=== PATIENT | female | born 1995 | race Native Hawaiian/Other Pacific Islander ===

== ENCOUNTER 2018-06-22 07:33 | Emergency (ER) | payer OTHER | END 2018-06-22 08:56 | disposition home or self-care (01) | LOC: C.ER 07:33 ==

== ENCOUNTER 2018-07-24 18:31 | Emergency (ER) | payer OTHER ==
[2018-07-24 18:56] VITALS: O2SAT 100
--- NOTE | 2018-07-24 20:47 | C.PDOC ---
History Of Present Illness Patient presents with right lower abdominal pain. She states she feels bloated, currently has her period. Denies fever, chills, nausea, or vomiting. Time Seen by Provider: 07/24/18 20:46 Chief Complaint (Nursing): Abdominal Pain History Per: Patient History/Exam Limitations: no limitations Onset/Duration Of Symptoms: Hrs Current Symptoms Are (Timing): Still Present Severity: Moderate Pain Scale Rating Of: 4 Location Of Pain/Discomfort: RLQ Quality Of Discomfort: Unable To Describe Associated Symptoms: denies: Fever, Chills, Nausea, Vomiting Exacerbating Factors: None Alleviating Factors: None Recent travel outside of the [place]: No Abnormal Vaginal Bleeding: No Past Medical History Reviewed: Historical Data, Nursing Documentation, Vital Signs Vital Signs: Last Vital Signs Temp 98.1 F 07/24/18 18:52 Pulse 81 07/24/18 18:52 Resp 18 07/24/18 18:52 BP 109/74 07/24/18 18:52 Pulse Ox 100 07/24/18 18:52 Family History: States: No Known Family Hx - Social History Hx Alcohol Use: Yes Hx Substance Use: No - Immunization History Hx Tetanus Toxoid Vaccination: Yes Hx Influenza Vaccination: No Hx Pneumococcal Vaccination: No Review Of Systems Constitutional: Negative for: Fever, Chills Cardiovascular: Negative for: Chest Pain, Palpitations Respiratory: Negative for: Cough, Shortness of Breath Gastrointestinal: Positive for: Abdominal Pain. Negative for: Nausea, Vomiting Neurological: Negative for: Weakness, Numbness Physical Exam - Physical Exam Appears: Non-toxic Skin: Warm, Dry Head: Normacephalic Oral Mucosa: Moist Chest: Symmetrical, No Tenderness Cardiovascular: Rhythm Regular Respiratory: No Rales, No Rhonchi, No Wheezing Gastrointestinal/Abdominal: Soft, Tenderness (Mildly diffuse), No Guarding, No Rebound Back: No CVA Tenderness Neurological/Psych: Oriented x3 ED Course And Treatment - Laboratory Results Result Diagrams: 07/24/18 21:34 07/24/18 21:34 O2 Sat by Pulse Oximetry: 100 (Room air) Pulse Ox Interpretation: Normal Progress Note: Blood work and urinalysis ordered. Reevaluation Time: 00:40 Reassessment Condition: Improved Medical Decision Making Medical Decision Making: Upon provider reevaluation patient is feeling better, is medically stable, and requires no further treatment in the ED at this time. Patient will be discharged home with Rx for reglan . Counseling was provided and all questions were answered regarding diagnosis and need for follow up with the referred clinic. There is agreement to discharge plan. Return if symptoms persist or worsen. Disposition Counseled Patient/Family Regarding: Studies Performed, Diagnosis, Need For Followup, Rx Given - Disposition Referrals: [facility] [Outside] [facility] [Outside] Disposition: HOME/ ROUTINE Disposition Time: 20:47 Condition: FAIR Additional Instructions: Please return if symptoms recur. Do not eat tonight and have very light meals tomorrow Prescriptions: Metoclopramide [Reglan] 1 tab PO TID PRN #25 tab PRN Reason: Nausea/Vomiting Instructions: Acute Abdomen (Belly Pain), Adult (DC), Small Bowel Obstruction (DC) Forms: [facility] (Czech) - Clinical Impression Clinical Impression: Abdominal pain, Partial small bowel obstruction - Scribe Statement The provider has reviewed the documentation as recorded by the Scribe Deshaun Ivey All medical record entries made by the Scribe were at my direction and personally dictated by me. I have reviewed the chart and agree that the record accurately reflects my personal performance of the history, physical exam, medical decision making, and the department course for this patient. I have also personally directed, reviewed, and agree with the discharge instructions and disposition.
[2018-07-24 21:39] LABS: BASO % 0.4 % (0.0-2.0); EOS # 0.2 K/uL (0.0-0.7); EOS % 2.6 % (0.0-4.0); HEMOGLOBIN 13.3 g/dL (11.0-16.0); LYMPH # 2.1 K/uL (1.0-4.3); LYMPH % 31.2 % (20.0-40.0); MEAN CELL VOLUME 87.6 fL (81.0-99.0); MEAN CORPUSCULAR HEMOGLOBIN 28.9 pg (27.0-31.0); MEAN PLATELET VOLUME 7.5 fL (7.2-11.7); MONO # 0.5 K/uL (0.0-0.8); MONO % 7.1 % (0.0-10.0); NEUT % 58.7 % (50.0-75.0); NRBC % 0.1 % (0.0-2.0); RBC 4.6 Mil/uL (3.80-5.20); RED CELL DISTRIBUTION WIDTH 14.4 % (11.5-14.5); WHITE BLOOD COUNT 6.8 K/uL (4.8-10.8)
[2018-07-24 21:44] LABS: SQUAMOUS EPITHIAL < 1 /hpf (0-5); URINE BACTERIA FEW (<OCC); URINE BILIRUBIN NEGATIVE (NEGATIVE); URINE BLOOD 3+ (NEGATIVE); URINE COLOR Yellow (YELLOW); URINE GLUCOSE (UA) NORMAL (Normal); URINE LEUKOCYTE ESTERASE NEG Leu/uL (Negative); URINE PROTEIN NEGATIVE (NEGATIVE); URINE UROBILINOGEN NORMAL mg/dL (0.2-1.0)
[2018-07-24 21:45] LABS: URINE CLARITY Hazy (Clear)
[2018-07-24 21:50] LABS: PROTHROMBIN TIME 11.1 SECONDS (9.7-12.2)
[2018-07-24 21:56] LABS: ALB/GLOB RATIO 1.3 (1.0-2.1); ALBUMIN 4.5 g/dL (3.5-5.0); BLOOD UREA NITROGEN 11 mg/dL (7-17); CALCIUM 9.3 mg/dl (8.6-10.4); GFR NON-AFRICAN AMERICAN > 60; LIPASE 227 U/L (23-300)
[2018-07-24 21:57] LABS: ALT/SGPT 14 U/L (9-52); AST/SGOT 42 U/L (14-36)
[2018-07-24 22:25] VITALS: RESP 16
[2018-07-24] MEDS ORDERED: Iodixanol 320 MG/ML 100 ML BOTTLE IV ONE (22:55)
[2018-07-25 00:49] VITALS: BP 101/67; PULSE 71; TEMP 98.5
--- NOTE | 2018-07-25 10:42 | CT ---
Date of service: 07/24/2018 PROCEDURE: CT Abdomen and Pelvis with contrast HISTORY: rlq abd pain COMPARISON: None available. TECHNIQUE: Contrast dose: 100 mL Visipaque 320 Radiation dose: Total exam DLP = 343.46 mGy-cm. This CT exam was performed using one or more of the following dose reduction techniques: Automated exposure control, adjustment of the mA and/or kV according to patient size, and/or use of iterative reconstruction technique. FINDINGS: LOWER THORAX: No visible consolidation, pleural effusion, or pneumothorax. LIVER: Unremarkable. GALLBLADDER AND BILE DUCTS: Decompressed gallbladder evaluation PANCREAS: Unremarkable. SPLEEN: Unremarkable. ADRENALS: Unremarkable. KIDNEYS AND URETERS: The kidneys enhance symmetrically. No hydronephrosis or obstructing calculus identified. VASCULATURE: No aortic aneurysm. No atherosclerotic calcification or mural plaque present. BOWEL: Stomach is nondistended. Lack of oral contrast limits evaluation for bowel pathology. Dilated small bowel loops with fecalization; suspected transition in the right lower quadrant. Mild inflammatory changes evident involving the right colon. APPENDIX: The appendix is not identified. PERITONEUM: Trace pelvic fluid. No definite free air. LYMPH NODES: No bulky adenopathy identified. BLADDER: Unremarkable. REPRODUCTIVE: Unremarkable. BONES: No acute osseous abnormality is detected. OTHER FINDINGS: None. IMPRESSION: Dilated small bowel loops with fecalization; suspected transition in the right lower quadrant. Correlate clinically for developing small bowel obstruction. Mild inflammatory changes evident involving the right colon. The appendix is not identified. Trace pelvic fluid. Preliminary impression was provided by [facility].
== END 2018-07-25 01:12 | disposition home or self-care (01) ==
LOC: C.ER 18:31
DX: K56.600 Partial intestinal obstruction, unspecified as to cause (principal); R10.31 Right lower quadrant pain
CPT/HCPCS: 74177; 80053; 81001; 83690; 84703; 85025; 85610; 85730; 99284; Q9967